=== PATIENT | female | born 1930 | race Caucasian/White ===

== ENCOUNTER 2021-05-21 10:40 | Outpatient (CLI) | payer OTHER ==
[~2021-05-21 10:40] MED LIST: BONIVA150 MG PO; INTESTINEX1 CAP PO; LIPITOR20 MG PO
== END 2021-05-21 10:49 | disposition home or self-care (01) ==
LOC: SONOGRAMA 10:40
PROVIDERS: ATTEND Radiology Diagnostic Radiology
DX: E04.1 Nontoxic single thyroid nodule (principal); E03.8 Other specified hypothyroidism

== ENCOUNTER → 2021-08-02 | Outpatient (CLI) | payer OTHER | END | disposition home or self-care (01) | LOC: RAD 12:42 | PROVIDERS: ATTEND Internal Medicine Pulmonary Disease | DX: J44.1 Chronic obstructive pulmonary disease with (acute) exacerbation (principal); Q33.0 Congenital cystic lung ==